=== PATIENT | female | born 1965 | race American Indian/Alaskan Native ===

== ENCOUNTER 2018-05-29 13:35 | Day surgery (SDC) | payer OTHER ==
--- NOTE | 2018-05-29 14:20 | Anesthesia Day of Surgery ---
Anesthesia Day of Surgery - Day of Surgery Patient Examined: Yes Patient H&P Reviewed: Yes Patient is NPO: Yes Beta Blockers: No
--- NOTE | 2018-05-29 14:21 | Anesthesia Consultation ---
Anesthesia Consult and Med Hx Date of service: 05/29/18 - Airway Anesthetic Teeth Evaluation: Good ROM Head & Neck: Adequate Mental/Hyoid Distance: Adequate Intubation Access Assessment: Good - Pulmonary Exam CTA: Yes - Cardiac Exam Cardiac Exam: No Murmur - Pre-Operative Health Status ASA Pre-Surgery Classification: ASA2 Proposed Anesthetic Plan: MAC - Other Systems Hx Obesity: Yes
--- NOTE | 2018-05-29 14:57 | Operative Report ---
PREOPERATIVE DIAGNOSIS: Gastroesophageal reflux. POSTOPERATIVE DIAGNOSIS: Gastroesophageal reflux. PROCEDURE: EGD. SURGEON: Cristain Tan MD NURSE PRACTITIONER PER DIEM: None. ANESTHESIA: IV sedation. ESTIMATED BLOOD LOSS: Minimal. COMPLICATIONS: None. DRAINS: None. SPECIMENS: Gastric polyp biopsy. INDICATIONS: This is a 52-year-old female who morbidly obese, has reflux, here for an EGD. DESCRIPTION OF PROCEDURE: The patient was taken to Endoscopy Suite, placed in left lateral position. Once IV sedation was obtained, endoscope was passed per mouth into the esophagus and stomach under direct visualization as well as in the second part of the duodenum. No duodenal abnormalities noted. There were few small gastric polyps, one of which was biopsied and sent. It appeared normal with no evidence of malignancy. Retroflex found to have an appropriate hiatus. No evidence of large hiatal hernia noted and the pylorus itself seemed appropriate. No evidence of gastritis or ulcers noted. Esophagus itself appeared normal as well. No evidence of esophagitis. Endoscope was subsequently removed and the patient tolerated the procedure well. [facility]# [id number] ROSA/ANNABEL
[2018-05-29] MEDS ORDERED: NACL 0.9% 1000 ML 1,000 ML IV SCH (15:00)
[2018-05-29] MEDS ORDERED: VERSED ONE (16:18)
[2018-05-29] MEDS ORDERED: DIPRIVAN 10 MG/ML IV ONE (16:19)
[2018-05-29 17:03] VITALS: BP 128/66
== END 2018-05-29 13:36 | disposition home or self-care (01) ==
LOC: GIO 13:35
PROVIDERS: ATTEND Surgery
DX: K31.7 Polyp of stomach and duodenum (principal); K21.9 Gastro-esophageal reflux disease without esophagitis; E66.01 Morbid (severe) obesity due to excess calories; Z68.42 Body mass index [BMI] 45.0-49.9, adult; Z98.890 Other specified postprocedural states; Z96.612 Presence of left artificial shoulder joint; Z96.642 Presence of left artificial hip joint
CPT/HCPCS: 43239; 81025; 88305; 88342; J2250; J2704; J7030